=== PATIENT | male | born 1945 | race Caucasian/White ===

== ENCOUNTER → 2017-03-10 | Outpatient (CLI) | payer MEDICARE, OTHER | LOC: COL.RAD 13:00 | DX: M17.11 Unilateral primary osteoarthritis, right knee (principal); M23.221 Derangement of posterior horn of medial meniscus due to old tear or injury, right knee; M94.8X8 Other specified disorders of cartilage, other site; M71.21 Synovial cyst of popliteal space [Baker], right knee; M25.551 Pain in right hip | CPT/HCPCS: J3301; Q9967 ==